=== PATIENT | female | born 1990 | race Two or more races ===

== ENCOUNTER 2024-12-24 19:07 | Emergency (ER) | payer OTHER ==
[~2024-12-24] VITALS: Ht 175.3 cm; Wt 86.2 kg
[2024-12-24] MEDS ORDERED: ENALAPRILAT DIHYDRATE 1.25 MG/ML VIAL IV ONE ×2 (20:00→21:21)
[2024-12-24 22:03] LABS: BASO % 0.2 % (0.1-1.2); EOS # 0.01 (0.04-0.54); EOS % 0.1 % (0.7-7.0); LYMPH # 1.86 (1.18-3.74); LYMPH % 20.8 % (19.3-53.1); MEAN PLATELET VOLUME 11.40 fl (9.4-12.4); MONO # 0.45 (0.24-0.82); MONO % 5.0 % (4.7-12.5); NEUT # 6.60 (1.56-6.13); NEUT % 73.8 % (34.0-71.1); RED CELL DISTRIBUTION WIDTH 12.3 % (11.6-14.4)
[2024-12-24 22:44] LABS: BUN CREA RATIO 9 (7.0-25.0); CREATININE SERUM 0.91 mg/dL (0.55-1.02); GFR 71.19; GLUCOSE FASTING 84 mg/dL (65-100); OSMOLALITY SERUM 273 MOSM/KG (275-295)
[2024-12-24 22:46] LABS: CKMB < 1.0 NG/ML (0.5-3.6)
== END 2024-12-24 23:12 | disposition home or self-care (01) ==
LOC: ER 19:07
PROVIDERS: Student in an Organized Health Care Education/Training Program
DX: F41.0 Panic disorder [episodic paroxysmal anxiety] (principal); F41.8 Other specified anxiety disorders; R07.89 Other chest pain
CPT/HCPCS: 36415; 71045; 93005; 96365; 99283; J3490